=== PATIENT | female | born 1960 | race Two or more races ===

== ENCOUNTER → 2022-10-04 | Emergency (ER) | payer MEDICAID, OTHER ==
[~2022-10-04] VITALS: Ht 167.6 cm; Wt 73.0 kg
[~2022-10-04] MED LIST: ACET325T53 PO; GABA-532 PO; VALA100026 PO
[2022-10-04 16:20] VITALS: BP 147/87
--- NOTE | 2022-10-04 16:20 | NUR ---
BIBS C/O RASH ON ABDOMEN,X 7 DAYS
--- NOTE | 2022-10-04 17:15 | NUR ---
TO ER CHAIR,NO APPARENT CHANGE IN CONDITION
== END ==
LOC: ER 16:15
DX: B02.9 Zoster without complications (principal)